=== PATIENT | female | born 1965 | race Caucasian/White ===

== ENCOUNTER 2019-07-31 16:06 | Emergency (ER) | payer OTHER ==
--- OUTSIDE RECORDS SUMMARY | 2019-07-31 16:20 | XMS REPORT | Continuity of Care Document ---
:1965 External Reference #:[id number] Author Name Milly Montes MD (transmitted by agent of provider Jazmyn Small) Address [address], [address] [place] [id number] Care Team Providers Name Role Phone Milly Montes MD - Internal Medicine Care Team Information Manager Heart Problems Description No Information Available Social History Type Date Description Comments Sex Unknown ETOH Use Occasionally consumes alcohol Tobacco Use Start: Unknown Patient has never smoked Smoking Status Reviewed: 07/18/19 Patient has never smoked Exercise Type/Frequency Exercises sporadically Allergies, Adverse Reactions, Alerts Active Allergies Reaction Severity Comments Date Reglan 07/18/2019 Valium 07/18/2019 Compazine 07/18/2019 Doxycycline 07/18/2019 Medications Active Medications SIG Qnty Indications Ordering Date Provider Naratriptan HCL Take one tablet 14tabs G43.009 Milly Montes MD 05/19/2019 2.5mg Tablets at the start of headache; may repeat in 4 hours if needed Citalopram Hydrobromide 1 by mouth 90tabs F33.1 Milly Montes MD 05/19/2019 20mg every day Tablets Clonazepam take 1/2 to 1 30tabs F41.9 Milly Montes MD 05/19/2019 0.5mg Tablets tablet as Dispers needed anxiety Pramipexole take one tablet 90tabs G25.81 Milly Montes MD 05/19/2019 Dihydrochloride at bedtime 0.5mg Tablets Ondansetron take 1 every 8 30tabs G43.009 Milly Montes MD 05/19/2019 8mg Tablets hours as needed Dispers nausea Immunizations CPT Code Status Date Vaccine Reaction Lot # [id number] Given 05/19/2019 Influenza Virus Vaccine, No immediate reaction [id number] Quadrivalent (Cciiv4), Derived From Cell Vital Signs Date Vital Result Comment 07/18/2019 2:57pm Height 67 inches 5'7" Weight 194.00 lb Heart Rate 66 /min BP Systolic Sitting 125 mmHg BP Diastolic Sitting 77 mmHg Body Temperature 98.8 F O2 % BldC Oximetry 98 % BMI (Body Mass Index) 30.4 kg/m2 05/19/2019 11:00am Height 67 inches 5'7" Weight 197.00 lb Heart Rate 62 /min BP Systolic Sitting 141 mmHg BP Diastolic Sitting 88 mmHg Body Temperature 98.2 F O2 % BldC Oximetry 97 % BMI (Body Mass Index) 30.9 kg/m2 Results Test Acquired Date Facility Test Result H/L Range Note CBC Auto 07/18/2019 [facility] White Blood 4.0 10^3/uL Normal 3.5-10.[address] [place] [address] [phone] Red Blood Count 4.12 10^6/uL Normal 3.70-4.87 Hemoglobin 12.5 g/dL Normal 12.0-16.0 Hematocrit 36 % Normal 35-47 Mean Corpuscular Volume 87 fL Normal 80-97 Mean Corpuscular Hemoglobin 30 pg Normal 27-31 Mean Corpuscular HGB Conc 35 g/dL Normal 31-36 Red Cell Distribution Width 14 % Normal 10-15 Platelet Count 169 10^3/uL Normal 150-450 Mean Platelet Volume 8.9 fL Normal 7.4-10.4 Abs Neutrophils 1.9 10^3/uL Normal 1.5-7.7 Abs Lymphocytes 1.7 10^3/uL Normal 1.0-4.8 Abs Monocytes 0.3 10^3/uL Normal 0-0.8 Abs Eosinophils 0.1 10^3/uL Normal 0-0.6 Abs Basophils 0.0 10^3/uL Normal 0-0.2 Abs Nucleated RBC 0.0 10^3/uL Granulocyte % 48.0 % Lymphocyte % 41.0 % Monocyte % 7.8 % Eosinophil % 2.6 % Basophil % 0.6 % Nucleated Red Blood Cells % 0.1 Comp Metabolic 07/18/2019 [facility] Sodium 140 mmol/L Normal 135-[address] [place] [address] [phone] Potassium 4.0 mmol/L Normal 3.5-5.0 Chloride 104 mmol/L Normal 101-111 Co2 Carbon Dioxide 28 mmol/L Normal 22-32 Anion Gap 8 mmol/L Normal 2-11 Glucose 88 mg/dL Normal 70-100 Blood Urea Nitrogen 15 mg/dL Normal 6-24 Creatinine 0.69 mg/dL Normal 0.51-0.95 BUN/Creatinine Ratio 21.7 High 8-20 Calcium 9.8 mg/dL Normal 8.6-10.3 Total Protein 6.5 g/dL Normal 6.4-8.9 Albumin 4.5 g/dL Normal 3.2-5.2 Globulin 2.0 g/dL Normal 2-4 Albumin/Globulin Ratio 2.3 Normal 1-3 Total Bilirubin 0.40 mg/dL Normal 0.2-1.0 Alkaline Phosphatase 60 U/L Normal 34-104 Alt 13 U/L Normal 7-52 Ast 18 U/L Normal 13-39 Egfr Non- 88.3 >60 Egfr 106.9 >60 1 1 Because ethnic data is not always readily available, this report includes an eGFR for both -Americans and non- Americans. The National Kidney Disease Education Program (NKDEP) does not endorse the use of the MDRD equation for patients that are not between the ages of 18 and 70, are , have extremes of body size, muscle mass, or nutritional status, or are non- or non-. According to the National Kidney Foundation, irrespective of diagnosis, the stage of the disease is based on the level of kidney function: Stage Description GFR(mL/min/1.73 m(2)) 1 Kidney damage with normal or decreased GFR 90 2 Kidney damage with mild decrease in GFR 60-89 3 Moderate decrease in GFR 30-59 4 Severe decrease in GFR 15-29 5 Kidney failure <15 (or dialysis) Procedures Description No Information Available Medical Devices Description No Information Available Encounters Type Date Location Provider Dx Diagnosis Office Visit 07/18/2019 Nando Montes MD D47.2 Monoclonal 3:00p Medicine - Ccmob gammopathy R10.84 Generalized abdominal pain Office Visit 05/19/2019 11:20a Nando Montes, G43.009 Migraine w/o aura, Medicine - MD not intractable, Ccmob w/o status migrainosus F33.1 Major depressive disorder, recurrent, moderate F41.9 Anxiety disorder, unspecified G25.81 Restless legs syndrome D47.2 Monoclonal gammopathy R87.619 Unsp abnormal cytolog findings in specmn from cervix uteri Z12.31 Encntr screen mammogram for malignant neoplasm of breast Z12.11 Encounter for screening for malignant neoplasm of colon Z23 Encounter for immunization N94.10 Unspecified dyspareunia Assessments Date Code Description Provider 07/18/2019 D47.2 Monoclonal gammopathy Milly Montes MD 07/18/2019 R10.84 Generalized abdominal pain Milly Montes MD 05/19/2019 G43.009 Migraine without aura, not intractable, without Milly Montes MD status migrainosus 05/19/2019 F33.1 Major depressive disorder, recurrent, moderate Milly Montes MD 05/19/2019 F41.9 Anxiety disorder, unspecified Milly Montes MD 05/19/2019 G25.81 Restless legs syndrome Milly Montes MD 05/19/2019 D47.2 Monoclonal gammopathy Milly Montes MD 05/19/2019 R87.619 Unspecified abnormal cytological findings in Milly Montes MD specimens from cervix uteri 05/19/2019 Z12.31 Encounter for screening mammogram for malignant Milly Montes MD neoplasm of breast 05/19/2019 Z12.11 Encounter for screening for malignant neoplasm of Milly Montes MD colon 05/19/2019 Z23 Encounter for immunization Milly Montes MD 05/19/2019 N94.10 Unspecified dyspareunia Milly Montes MD Plan of Treatment Future Appointment(s):08/07/2019 4:40 pm - [facility] am - Terrence Basilio MD at [facility]11/18/2019 9:00 am - Mil[facility] - Milly Montes MDD47.2 Monoclonal gammopathyFollow up:Please print out the previously ordered lab slip. F/u in 2 weeks.R10.84 Generalized abdominal painComments:Continue to monitor your symptoms and return in 2 weeks. Functional Status Description No Information Available Mental Status Description No Information Available Referrals Refer to Reason for Referral Status Appt Date Terrence Basilio MD Prev Abn PAP and colposcopy. Will be due for Sent 2019 repeat in Spring [address] [facility], [place] [address] [phone]
--- OUTSIDE RECORDS SUMMARY | 2019-07-31 16:20 | XMS REPORT | Continuity of Care Document ---
:1965 External Reference #:[id number] Author Name Milly Montes MD Address [address], [place] [address] Care Team Providers Name Role Phone Milly Montes MD - Internal Medicine Care Team Information Experience Specialist [phone] Problems Description No Information Available Social History [...] Code Status Date Vaccine Reaction Lot # [id number] Given 05/19/2019 Influenza Virus Vaccine, No immediate reaction [id number] Quadrivalent (Cciiv4), Derived From Cell Vital Signs [...] BMI (Body Mass Index) 30.9 kg/m2 Results Description No Information Available Procedures Description No Information Available Medical Devices Description No Information Available Encounters Type Date Location Provider Dx Diagnosis Office Visit 05/19/2019 [facility] Milly Montes MD G43.009 Migraine w/o aura, 11:20a Medicine - Ccmob not intractable, w/o status migrainosus F33.1 Major depressive disorder, [...] Milly Montes MD Plan of Treatment Future Appointment(s):09/02/2019 9:00 am - Terrence Basilio MD at [facility]11/18/2019 9:00 am - Milly Montes MD at [facility] Internal Medicine - [facility]07/18/2019 - Milly Montes MDD47.2 Monoclonal gammopathyFollow up:Please print out the previously ordered lab slip. F/u in 2 weeks.R10.84 Generalized abdominal painComments:Continue to monitor your symptoms and return in 2 weeks. Functional Status Description No Information Available Mental Status Description No Information Available Referrals Refer to Dr Reason for Referral Status Appt Date Terrence Basilio MD Prev Abn PAP and colposcopy. Will be due for Sent 2019 repeat in Spring [address], [place] [address] [phone]
[2019-07-31 16:40] LABS: ABS Eosinophils 0.1 10^3/ul (0-0.6); ABS Lymphocytes 1.8 10^3/ul (1.0-4.8); ABS Monocytes 0.4 10^3/ul (0-0.8); ABS Neutrophils 1.7 10^3/ul (1.5-7.7); Eosinophil % 3.4 %; Hematocrit 39 % (35-47); Hemoglobin 13.5 g/dL (12.0-16.0); Lymphocyte % 43.9 %; Mean Corpuscular HGB Conc 34 g/dL (31-36); Mean Corpuscular Hemoglobin 30 pg (27-31); Mean Corpuscular Volume 87 fL (80-97); Nucleated Red Blood Cells % 0.1; Platelet Count 185 10^3/uL (150-450); Red Blood Count 4.51 10^6 /uL (3.70-4.87); Red Cell Distribution Width 13 % (10-15); White Blood Count 4.2 10^3/uL (3.5-10.8)
--- NOTE | 2019-07-31 16:55 | ED ---
Abdominal Pain/Female - HPI Summary HPI Summary: 54-year-old female presents to the emergency department today with a chief complaint of 6 out of 10 left lower quadrant pain with associated nausea and vomiting. Patient states she has had these symptoms for approximately 2 weeks which has become worse since began. Patient was seen by her primary care provider 2 days ago and today was urged to come to the emergency department for CT evaluation. Patient states she has had 3 episodes of emesis in the last 4 days. Patient has not taken any medication prior to arrival for alleviation of her symptoms. Patient denies fevers, chest pain, constipation, blood per rectum , dark stools, diarrhea, rash, pain with urination. - History of Current Complaint Chief Complaint: EDAbdPain Stated Complaint: ABD PAIN/NAUSEA/VOMITING PER PT Time Seen by Provider: 07/31/19 16:37 Hx Obtained From: Patient Onset/Duration: Gradual Onset Timing: Constant Severity Initially: Moderate Severity Currently: Moderate Pain Intensity: 5 Pain Scale Used: 0-10 Numeric Location: Discrete At: LLQ Radiates: No Character: Sharp, Cramping Associated Signs and Symptoms: Positive: Nausea, Vomiting. Negative: Fever, Diarrhea Allergies/Adverse Reactions: Allergies Allergy/AdvReac Type Severity Reaction Status Date / Time metoclopramide [From Reglan] AdvReac Unknown Verified 07/31/19 16:09 Reaction Details prochlorperazine AdvReac Unknown Verified 07/31/19 16:09 [From Compazine] Reaction Details Home Medications: Home Medications Citalopram TAB* [CeleXA TAB*] 20 mg PO DAILY 07/31/19 [History Confirmed ] Pramipexole TAB* [Mirapex TAB*] 0.5 mg PO BEDTIME 07/31/19 [History Confirmed ] PMH/Surg Hx/FS Hx/Imm Hx Infectious Disease History: No Infectious Disease History: Denies: Traveled Outside the [place] in Last 30 Days Review of Systems Constitutional: Negative Eyes: Negative ENT: Negative Cardiovascular: Negative Respiratory: Negative Positive: Abdominal Pain, Vomiting, Nausea. Negative: Diarrhea Genitourinary: Negative Musculoskeletal: Negative Skin: Negative Neurological/Mental Status: Negative Psychological: Normal All Other Systems Reviewed And Are Negative: Yes Physical Exam - Summary Physical Exam Summary: Patient is in no acute distress. Inspection the abdomen reveals no ecchymosis or masses. Auscultation reveals normoactive bowel sounds. Patient has pain with palpation of the left lower quadrant. No rebound tenderness, guarding, rigidity. No pain at McBurney's point. Triage Information Reviewed: Yes Vital Signs On Initial Exam: Initial Vitals Temp Pulse Resp BP Pulse Ox 98.9 F 71 16 135/94 99 07/31/19 16:08 07/31/19 16:08 07/31/19 16:08 07/31/19 16:08 07/31/19 16:08 Vital Signs Reviewed: Yes Appearance: Positive: Well-Appearing, No Pain Distress, Well-Nourished Skin: Positive: Warm, Skin Color Reflects Adequate Perfusion Eyes: Positive: EOMI, CAROLYN ENT: Positive: Hearing grossly normal Respiratory/Lung Sounds: Positive: Clear to Auscultation, Breath Sounds Present Cardiovascular: Positive: RRR, S1, S2 Abdomen Description: Positive: Soft. Negative: CVA Tenderness (R), CVA Tenderness (L), Distended, Guarding, McBurney's Point Tenderness Bowel Sounds: Positive: Present Musculoskeletal: Positive: Strength/ROM Intact Neurological: Positive: Sensory/Motor Intact, Alert, Oriented to Person Place, Time, Normal Gait, Facial Symmetry, Speech Normal Psychiatric: Positive: Normal, Affect/Mood Appropriate AVPU Assessment: Alert Procedures - Sedation Patient Received Moderate/Deep Sedation with Procedure: No Diagnostics - Vital Signs Vital Signs Temp Pulse Resp BP Pulse Ox 07/31/19 16:08 98.9 F 71 16 135/94 99 - Laboratory Lab Results: Lab Results 07/31/19 Range/Units 16:31 WBC 4.2 (3.5-10.8) 10^3/uL RBC 4.51 (3.70-4.87) 10^6 /uL Hgb 13.5 (12.0-16.0) g/dL Hct 39 (35-47) % MCV 87 (80-97) fL MCH 30 (27-31) pg MCHC 34 (31-36) g/dL RDW 13 (10-15) % Plt Count 185 (150-450) 10^3/uL MPV 8.0 (7.4-10.4) fL Neut % (Auto) 41.1 % Lymph % (Auto) 43.9 % Dupage % (Auto) 10.7 % Eos % (Auto) 3.4 % Baso % (Auto) 0.9 % Absolute Neuts (auto) 1.7 (1.5-7.7) 10^3/ul Absolute Lymphs (auto) 1.8 (1.0-4.8) 10^3/ul Absolute Monos (auto) 0.4 (0-0.8) 10^3/ul Absolute Eos (auto) 0.1 (0-0.6) 10^3/ul Absolute Basos (auto) 0.0 (0-0.2) 10^3/ul Absolute Nucleated RBC 0.0 10^3/ul Nucleated RBC % 0.1 Result Diagrams: 07/31/19 16:31 07/31/19 16:31 Lab Statement: Any lab studies that have been ordered have been reviewed, and results considered in the medical decision making process. Abdominal Pain Fem Course/Dx - Course Course Of Treatment: Patient was evaluated in the emergency department today for abdominal pain. Vitals noted and stable. Laboratory studies returned showing no leukocytosis, anemia or significant electrolyte abnormality. No elevation in lipase or CRP. Laboratory studies returned showing no evidence of pathology at this time. Due to patient's physical exam, history, laboratory studies it was deemed CT imaging at this time would be more harm than beneficial. Patient discharged with outpatient follow-up with instructions to return to the emergency department immediately should she develop new or worsening symptoms such as increased abdominal pain and fever. - Diagnoses Differential Diagnosis: Positive: Bowel Obstruction, Constipation, Diverticulitis, Gall Bladder Disease, Peptic Ulcer Disease Provider Diagnoses: Abdominal pain Discharge ED - Sign-Out/Discharge Documenting (check all that apply): Patient Departure - Discharge Plan Condition: Stable Disposition: HOME Patient Education Materials: Acute Abdominal Pain (ED) Referrals: Milly Montes MD [Primary Care Provider] - 3 Days Additional Instructions: You were seen in the emergency department today for abdominal pain. There is no evidence that your symptoms are due to a life-threatening or infectious process requiring intervention at this time. Please follow up with your primary care provider or catering sous chef in 3 days for further evaluation and management of your symptoms. Please return to the emergency department immediately if you develop any new or worsening symptoms. Take Maalox plus for alleviation of your symptoms. - Billing Disposition and Condition Condition: STABLE Disposition: Home - Attestation Statements Provider Attestation: I was available for consult. This patient was seen by the PATTI. The patient was not presented to, seen by, or examined by me. Chas Dobson MD
[2019-07-31 16:57] LABS: ALT 15 U/L (7-52); AST 20 U/L (13-39); Albumin 4.6 g/dL (3.2-5.2); Albumin/Globulin Ratio 1.8 (1-3); Alkaline Phosphatase 66 U/L (34-104); Anion Gap 5 mmol/L (2-11); Blood Urea Nitrogen 12 mg/dL (6-24); C Reactive Protein < 1.00 mg/L (<8.01); CO2 Carbon Dioxide 30 mmol/L (22-32); Calcium 9.8 mg/dL (8.6-10.3); Chloride 105 mmol/L (101-111); EGFR African American 97.1 (>60); EGFR Non-African American 80.2 (>60); Globulin 2.6 g/dL (2-4); Glucose 109 mg/dL (70-100); Potassium 3.5 mmol/L (3.5-5.0); Sodium 140 mmol/L (135-145); Total Protein 7.2 g/dL (6.4-8.9)
[2019-07-31] MEDS ORDERED: Iohexol 300* (CONTRAST) 10 ML SDV IV ONE (17:07)
[2019-07-31] MEDS ORDERED: Al Hydrox/Mg Hydrox/Simet LIQ* 30 ML UDC PO ONE (17:48)
[2019-07-31 17:58] VITALS: BP 136/85
== END 2019-07-31 17:57 | disposition home or self-care (01) ==
LOC: ED 16:06
DX: R10.32 Left lower quadrant pain (principal); R11.2 Nausea with vomiting, unspecified; Z88.8 Allergy status to other drugs, medicaments and biological substances
CPT/HCPCS: 36415; 80053; 83690; 85025; 86140; 99282; A9270-GY